=== PATIENT | male | born 1955 ===

== ENCOUNTER 2019-03-12 08:04 | Emergency (ER) | payer OTHER ==
[2019-03-12] MEDS ORDERED: ONDANSETRON 4 MG/2 ML VIAL ONE (08:28)
[2019-03-12] MEDS ORDERED: NA CHLORIDE 0.9% 1,000 ML ONE (08:28)
[2019-03-12] MEDS ORDERED: MORPHINE 4 MG/ML SYR ONE ×2 (08:28→08:57)
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
[2019-03-12] MEDS ORDERED: KETOROLAC 30 MG/ML INJ ONE (08:57)
--- NOTE | 2019-03-12 09:47 | RAD REPORT ---
EXAM DESCRIPTION: RAD - Ankle Right 3 View - 03/12/2019 9:01 am CLINICAL HISTORY: Leg and ankle pain following trauma COMPARISON: None. FINDINGS: Comminuted fracture of the ankle is present. There is an oblique fracture through the ante rior margin of the tibial plafond extending from medial to lateral. A separate medial malleolus fract ure is present extending into the posterior malleolus. There is 2 mm of distraction of this fracture fragment. Oblique fracture through the distal fibula is present 2 cm above the level of the tibial pl afond. There is slight medial displacement of the dome of the talus relative to the tibia. The medial malleolus fracture fragment maintains positioning to the talar dome. Hardware is in place from prior fusion of the talus and calcaneus. No hardware fracture. Soft tissue swelling is minimal. No foreign body seen. IMPRESSION: Distal right tibia and fibula fractures as detailed.
--- NOTE | 2019-03-12 09:48 | RAD REPORT ---
EXAM DESCRIPTION: RAD - Tib Fib Right - 03/12/2019 9:01 am CLINICAL HISTORY: Leg pain following trauma COMPARISON: None. FINDINGS: Fractures involving the distal tibia and fibula are detailed in the ankle report. Remainde r of the tibia and fibula show no additional fracture or acute bone finding. No joint effusion seen a t the knee. No foreign body in the soft tissues. IMPRESSION: Distal tibia and fibula fracture changes are detailed in the ankle report. Remainder of the right lower leg shows no additional acute finding.
[2019-03-12] MEDS ORDERED: HYDROMORPHONE HCL 0.5 MG/0.5 ML INJ ONE (10:11)
== END 2019-03-12 10:46 | disposition home or self-care (01) ==
LOC: ER 08:04
PROC: 2W3QX1Z Immobilization of Right Lower Leg using Splint (ICD-10-PCS; principal; 2019-03-12)
DX: S82.851A Displaced trimalleolar fracture of right lower leg, initial encounter for closed fracture (principal); X58.XXXA Exposure to other specified factors, initial encounter; Y93.9 Activity, unspecified; Y92.89 Other specified places as the place of occurrence of the external cause; Z85.46 Personal history of malignant neoplasm of prostate; Z91.048 Other nonmedicinal substance allergy status
CPT/HCPCS: 96361; 96374; 96375; 99284; J1170; J2405; J7030